=== PATIENT | male | born 1995 | race Caucasian/White ===

== ENCOUNTER 2017-03-25 17:25 | Emergency (ER) | payer OTHER ==
[~2017-03-25] VITALS: Ht 182.9 cm; Wt 64.6 kg
[2017-03-25 17:32] VITALS: BP 130/71
[2017-03-25] MEDS ORDERED: DEXAMETHASONE 4 MG TABLET PO STA (17:56)
[2017-03-25] MEDS ORDERED: DEXAMETHASONE 4 MG TABLET ONE (18:02)
== END 2017-03-25 18:13 | disposition home or self-care (01) ==
LOC: ED 18:07
DX: J02.0 Streptococcal pharyngitis (principal); F17.210 Nicotine dependence, cigarettes, uncomplicated
CPT/HCPCS: 99283